=== PATIENT | female | born 1945 | race Caucasian/White ===

== ENCOUNTER 2019-09-22 11:46 | Inpatient (IN) | payer OTHER, BC ==
[2019-09-22] VITALS (12 sets, daily range): BP systolic 92–130; BP diastolic 42–66
[~2019-09-22] VITALS: Ht 165.1 cm; Wt 80.7 kg
[2019-09-22] MEDS ORDERED: DOXYCYCLINE 10100 M1 PO (12:03)
[2019-09-22] MEDS ORDERED: BACTRIM DS TAB1 EACH PO (12:03)
[2019-09-22] MEDS ORDERED: ACYCLOVIR 400400 MG PO (12:03)
[2019-09-22] MEDS ORDERED: WIXELA 250-501 EACH INH (12:04)
[2019-09-22] MEDS ORDERED: PREDNISONE 20 M20 M1 PO (12:04)
[2019-09-22] MEDS ORDERED: PROAIR HFA8.5 GM INH (12:04)
[2019-09-22] MEDS ORDERED: WELLBUTRIN 75 M75 M1 PO (12:04)
[2019-09-22 12:08] LABS: HEMATOCRIT 33.8 % (37.0-47.0); HEMOGLOBIN 10.7 gm/dL (12.0-15.0); MCH 31.3 pg (26.0-34.0); MCHC 31.7 g/dL (28.0-37.0); MCV 98.5 fL (80.0-100.0); PLATELET COUNT 294 thou/uL (150-400); RBC 3.43 mil/uL (4.20-5.00); RDW 13.8 % (10.5-14.5); WBC 15.9 thou/uL (4.0-11.0)
[2019-09-22 12:14] LABS: ANION GAP 8 mmol/L (7-16); BUN 13 mg/dL (7-18); CALCIUM 9.2 mg/dL (8.5-10.1); CHLORIDE 99 mmol/L (98-107); CO2 26 mmol/L (21-32); CREATININE 1.2 mg/dL (0.6-1.0); GLUCOSE 110 mg/dL (74-106); POTASSIUM 4.6 mmol/L (3.5-5.1); SODIUM 133 mmol/L (136-145)
[2019-09-22 12:24] LABS: ALBUMIN 2.3 g/dL (3.4-5.0); SGOT 16 U/L (15-37); SGPT 21 U/L (30-65); TOTAL BILIRUBIN 0.3 mg/dL (<0.1-1.0); TROPONIN-I <0.06 ng/mL (<0.06)
[2019-09-22 12:38] LABS: BE(vivo) 0.4 mmol/L (-2 to +3); HCO3 23.8 mmol/L (22.0-26.0); PCO2 34.2 mmHg (35.0-45.0); PO2 68.2 mmHg (80.0-100.0); pH 7.461 (7.360-7.450); sO2 94.7 % (92.0-98.0)
[2019-09-22 12:41] LABS: ABSOLUTE NEUTROPHILS 13.7 thou/uL (1.4-8.2); ANISOCYTOSIS SLIGHT; POLYCHROMASIA SLIGHT
[2019-09-22 14:08] LABS: APTT 27.9 Seconds (24.5-32.8); INR 1.1
--- NOTE | 2019-09-22 19:39 | NUR ---
at 1820, admitted to icu #244 with diagnosis pneumonia and darío pulmonary embolis. alert/oriented x 4, cooperative, calm, pleasant, sr-100, sao2 down to 89%, then increased 02 to 7 L/high flow nc with sa02 increasing to 92%. when speaking in short sentence, pt starts coughing which resolves quickly. admission history completed, report given to SHERRY Mauro.
[2019-09-23] VITALS (21 sets, daily range): BP systolic 92–117; BP diastolic 38–63
[2019-09-23 03:25] LABS: HEMATOCRIT 28.8 % (37.0-47.0); HEMOGLOBIN 9.3 gm/dL (12.0-15.0); MCH 31.6 pg (26.0-34.0); MCHC 32.1 g/dL (28.0-37.0); MCV 98.3 fL (80.0-100.0); RBC 2.93 mil/uL (4.20-5.00); RDW 13.7 % (10.5-14.5); WBC 12.6 thou/uL (4.0-11.0)
[2019-09-23 03:33] LABS: CALCIUM 8.4 mg/dL (8.5-10.1); POTASSIUM 4.8 mmol/L (3.5-5.1)
--- NOTE | 2019-09-23 07:41 | H ---
[facility] [place] [address] HISTORY AND PHYSICAL Name: MANUELAJAI Aman Room #: 244-P [facility] IN [facility]#: [id number] Admission: 09/22/19 Attend Phys: Sean Aguilar MD Discharge: Date of : 49 Report #: [id number] THIS REPORT FOR: //name// CC: Sean Rahman DATE OF SERVICE: 09/22/2019 CHIEF COMPLAINT: Shortness of breath. HISTORY OF PRESENT ILLNESS: The patient is a 74-year-old female who was admitted through the Emergency Room with complaints of shortness of breath. Over the last several weeks, she has had a lot of cough and congestion, progressive shortness of breath along with progressive leg edema. She has been seen through the office with Dr. Rahman and several courses of antibiotics and COPD treatment has been ordered; however, she is not improved. Today in the office, she was severely hypoxic and was routed to the Emergency Room. PAST MEDICAL HISTORY: Chronic obstructive pulmonary disease. PAST SURGICAL HISTORY: None. FAMILY HISTORY: Noncontributory. SOCIAL HISTORY: She has remote [id number]-[id number] history of smoking. No chronic alcohol use. ALLERGIES: None. MEDICATIONS: She recently completed, Bactrim and doxycycline, acyclovir and prednisone taper, also takes Wellbutrin, ProAir and Wixela inhaler twice daily. REVIEW OF SYSTEMS: She just complains of shortness of breath and weakness. Otherwise, no headache, chest pain, abdominal pain, nausea, vomiting, diarrhea, constipation, dysuria, syncope. She has some lower leg edema. OBJECTIVE: VITAL SIGNS: Temperature 36.6, pulse 107, respirations 19, blood pressure 94/46, O2 sat 93% on 6 liters nasal cannula. GENERAL: She is awake and alert, sitting up in bed, in no distress. HEAD AND NECK: Unremarkable. LUNGS: Clear with no wheezing. HEART: Tachycardic, regular rhythm. ABDOMEN: Soft, normoactive bowel sounds. No rebound or guarding. EXTREMITIES: 1+ lower extremity edema. NEUROLOGIC: Cranial nerves intact. Speech is fluent. Motor strength 02/[address] [address] HISTORY AND PHYSICAL Name: JAI ROY Room #: 244-P [facility] IN [facility]#: [id number] Admission: 09/22/19 Attend Phys: Sean Aguilar MD Discharge: Date of : 49 Report #: [id number]. LABORATORY DATA: White count was 15, pH 7.46, pCO2 of 34, pO2 of 68 on 9 liters nasal cannula. Chemistry was unremarkable. Albumin 2.3. CTA of the chest shows bilateral pulmonary emboli and there is a right upper lobe infiltrate. ASSESSMENT: 1. Bilateral pulmonary embolus. 2. Right upper lobe pneumonia. 3. Chronic obstructive pulmonary disease exacerbation due to the above. 4. Acute hypoxic respiratory failure due to the above. PLAN: She will be treated with antibiotics, broad-spectrum that she has been on oral treatment as an outpatient and failed Lovenox. Lovenox PE treatment dose has been ordered along with venous Dopplers. I will ask for an echocardiogram as well. Dr. Roblero has been consulted and I have spoken to him at the bedside and ER with additional pulmonary workup planned for the right upper lobe infiltrate. <ELECTRONICALLY SIGNED> By: Sean Aguilar MD 09/23/19 0741 [id number] [id number] Sean Aguilar MD /nt
--- NOTE | 2019-09-23 11:04 | NUR ---
BEDSIDE ECHO DONE. PATIENT HAS STRONG PRODUCTIVE COUGH, INSPIRATORY AND EXPIRATORY WHEEZING NOTED. PATIENT SPEAKING IN SHORT SENTENCES
--- NOTE | 2019-09-23 19:51 | NUR ---
PATIENT NOTED TO BE LESS DYSPNIC WITH ACTIVITY DAY PRORESSED. SPEAKING IN FULL SENTENCES. MONITOR STABLE AND HR UP TO THE LOW 100'S WITH ACTIVITY. DENIES PAIN. PATIENT AND FAMILY UPDATED TO THE PLAN OF CARE AND REASSURANCE GIVEN.
[2019-09-24] VITALS (21 sets, daily range): BP systolic 90–140; BP diastolic 42–80
[2019-09-24 03:33] LABS: HEMATOCRIT 27.2 % (37.0-47.0); HEMOGLOBIN 8.6 gm/dL (12.0-15.0); MCH 31.5 pg (26.0-34.0); MCHC 31.8 g/dL (28.0-37.0); MCV 99.2 fL (80.0-100.0); RBC 2.74 mil/uL (4.20-5.00); RDW 14.4 % (10.5-14.5); WBC 15.8 thou/uL (4.0-11.0)
[2019-09-24 03:37] LABS: CALCIUM 8.2 mg/dL (8.5-10.1); POTASSIUM 4.8 mmol/L (3.5-5.1)
--- NOTE | 2019-09-24 07:27 | NUR ---
Pt states she feels she is breathing better. Takes less time to recover after getting up to BSC, sat will decrease to 88% but back above 90% after 5-7 minutes. Monitor remains sinus rhythm at rest, sinus tach up to 110 with activity. Pt moved to room 237 at 0600 with belongings.
--- NOTE | 2019-09-24 11:20 | EKG ---
[address] [address] ELECTROCARDIOGRAM REPORT Name: JAI ROY Room #: 237-[facility] IN .R.#: [id number] Admission: 09/22/19 Attend Phys: Sean Aguilar MD Discharge: Date of : 49 Report #: [id number] THIS REPORT FOR: //name// [facility] ED Test Date: 2019-09-22 Test Time: 11:55:26 Pat Name: JAI GOODRICHGOMERY Department: Room: [facility] Gender: F Data Communications Engineer: ts : 1945 Requested By: Greg Oscar Order Number: [id number] MD: Ever Vera Measurements Intervals [place] Rate: 113 P: 60 SD: 140 QRS: -6 QRSD: 104 T: 23 QT: 329 QTc: 451 Interpretive Statements Sinus tachycardia Probable left atrial enlargement Low voltage, extremity and precordial leads No previous ECG available for comparison Electronically Signed On 09-24-2019 11:20:02 ELEMENTARY READING SPECIALIST by Ever Vera [email or web address] <ELECTRONICALLY SIGNED> By: Ever Vera MD 09/24/19 1120 1155 1155 Ever Vera MD /PEGGY
--- NOTE | 2019-09-24 13:16 | NUR ---
PATIENT UP TO THE BEDSIDE COMMODE. O2 SAT DIPPED TO THE 80'S BUT RECOVERED AFTER ALEXIA 5 MIN. VISITING WITH FAMILY MEMBER SPEAKING IN COMPLETE SENTENCES.
--- NOTE | 2019-09-24 18:24 | NUR ---
PATIENT UP TO CHAIR WITH ASSISTANCE, COUGHING AND O2 SAT IN THE UPPER 80'S. O2 INCREASED FOR ACTIVITY. PRODUCTIVE COUGH OF BROWNISH MUCOUS. ASSISTED WITH BATH, WITH REST PERIODS PROVIDED AND ASSISTANCE GIVEN. PATIENT AND FAMILY UPDATED TO THE POC AND REASSURANCE GIVEN.
--- NOTE | 2019-09-24 22:38 | NUR ---
PT C/O CHEST PAIN AT 2154. PT WAS UNSURE IF IT WAS RELATED TO HER COUGHING. 12 LEAD EKG DONE PER DR. WARD. RESULTS CALLED BACK TO DR WARD AT 2237. EKG SHOWS SR. ORDERS GIVEN FOR INDIGESTION, PAIN, AND COUGH SUPPRESSANT .
[2019-09-25] VITALS (13 sets, daily range): BP systolic 99–122; BP diastolic 34–56
--- NOTE | 2019-09-25 01:40 | 2DMMODE ---
[facility] [address] [place] [address] 2 D/M-MODE ECHOCARDIOGRAM Name: JAI ROY Room #: 237-P [facility] IN .#: [id number] Admission: 09/22/19 Attend Phys: Danielle Andrew Discharge: Date of : 49 Report #: [id number] THIS REPORT FOR: //name// APPROVED REPORT Study performed: 09/23/2019 09:38:16 EXAM: Comprehensive 2D, Doppler, and color-flow Echocardiogram Patient Location: Bedside Room #: 244 Status: on-call BSA: 1.87 HR: 96 bpm BP: 110/53 mmHg Rhythm: NSR Other Information Study Quality: Adequate Technically limited study due to inability to position patient, lung disease. Risk Factors: Cardiac Risk Factors: Smoking Indications COPD Pulmonary Embolism Respiratory Failure 2D Dimensions IVSd: 12.77 (7-11mm) LVOT Diam: 20.00 (18-24mm) LVDd: 35.36 mm PWd: 13.09 (7-11mm) LVDs: 24.53 (25-40mm) Aortic Root: 29.92 mm LV Single Plane 4CH: 64.87 % LV Single Plane 2CH: 59.62 % Biplane EF: 59.8 % Volumes Left Atrial Volume (Systole) Single Plane 4CH: 43.87 mL Single Plane 2CH: 31.41 mL LA ESV Index: 22.00 mL/m2 Aortic Valve [facility] [address] [place] [address] 2 D/M-MODE ECHOCARDIOGRAM Name: JAI ROY Room #: 237-P [facility] IN ..#: [id number] Admission: 09/22/19 Attend Phys: Danielle Andrew Discharge: Date of : 49 Report #: [id number] AoV Peak Florian.: 2.18 m/s AO Peak Gr.: 19.09 mmHg LVOT Max P.03 mmHg AO Mean Gr.: 11.09 mmHg LVOT Mean P.96 mmHg AO V2 Mean: 1.50 m/s LVOT Max V: 1.00 m/s AO V2 VTI: 36.33 cm LVOT Mean V: 0.66 m/s SUPA (VTI): 2.01 cm2 LVOT V1 VTI: 23.87 cm SUPA Vmax: 1.40 cm2 SV (LVOT): 72.98 mL Mitral Valve E/A Ratio: 0.8 MV Decel. Time: 221.69 ms MV E Max Florian.: 0.90 m/s MV A Florian.: 1.16 m/s MV PHT: 64.29 ms IVRT: 79.58 ms TDI E/Lateral E': 8.18 E/Medial E': 6.92 Medial E' Florian.: 0.13 m/s Lateral E' Florian.: 0.11 m/s Pulmonary Valve PV Peak Florian.: 1.12 m/s PV Peak Gr.: 5.01 mmHg Pulmonary Vein P Vein S: 0.47 m/s P Vein A: 0.34 m/s P Vein D: 0.32 m/s P Vein A Dur.: 114.2 msec P Vein S/D Ratio: 1.47 Tricuspid Valve TR Peak Florian.: 3.47 m/s RAP Estimate: 15.00 mmHg TR Peak Gr.: 48.24 mmHg PA Pressure: 63.00 mmHg Left Ventricle The left ventricle is normal size. There is normal LV segmental wall motion. Mild to moderate concentric left ventricular hypertrophy. Left ventricular systolic function is normal. The left ventricular ejection fraction is within the normal range. LVEF is 60-65%. Mild diastolic dysfunction is present (impaired relaxation pattern). Right Ventricle Right ventricle is dilated. Right ventricle is hypokinetic. [facility] [address] [place] [address] 2 D/M-MODE ECHOCARDIOGRAM Name: JAI ROY Room #: [facility] IN [facility]#: [id number] Admission: 09/22/19 Attend Phys: Danielle Andrew Discharge: Date of : 49 Report #: [id number] Atria The left atrium size is normal. Right atrium is dilated. Aortic Valve The Aortic valve is sclerotic. Trace aortic regurgitation. There is no aortic valvular stenosis. Mitral Valve There is mitral annular calcification. There is no mitral valve regurgitation noted. No evidence of mitral valve stenosis. Tricuspid Valve The tricuspid valve is normal in structure. Trace to mild tricuspid regurgitation. Pulmonary artery pressure is 63 mmHg. Moderate pulmonary hypertension. Pulmonic Valve The pulmonary valve is normal in structure. There is no pulmonic valvular regurgitation. Great Vessels The aortic root is normal in size. IVC is dilated and collapses <50% with inspiration. Pericardium There is no pericardial effusion. <Conclusion> The left ventricle is normal size. LVEF is 60-65%. Right ventricle is dilated. Right ventricle is hypokinetic. Right atrium is dilated. The Aortic valve is sclerotic. Trace aortic regurgitation. There is mitral annular calcification. There is no mitral valve regurgitation noted. The tricuspid valve is normal in structure. Trace to mild tricuspid regurgitation. Pulmonary artery pressure is 63 mmHg[place] [address] 2 D/M-MODE ECHOCARDIOGRAM Name: JAI ROY Room #: 237-P [facility] IN [facility]#: [id number] Admission: 09/22/19 Attend Phys: Danielle Andrew Discharge: Date of : 49 Report #: [id number] The pulmonary valve is normal in structure. There is no pericardial effusion. <ELECTRONICALLY SIGNED> By: King Barnes MD 09/25/19139 9 9 King Barnes MD /INF
[2019-09-25 05:38] LABS: HEMATOCRIT 30.9 % (37.0-47.0); HEMOGLOBIN 9.7 gm/dL (12.0-15.0); MCH 31.5 pg (26.0-34.0); MCHC 31.5 g/dL (28.0-37.0); MCV 99.8 fL (80.0-100.0); RBC 3.09 mil/uL (4.20-5.00); RDW 14.2 % (10.5-14.5); WBC 15.5 thou/uL (4.0-11.0)
[2019-09-25 05:56] LABS: CALCIUM 8.8 mg/dL (8.5-10.1); CREATININE 0.9 mg/dL (0.6-1.0)
--- NOTE | 2019-09-25 07:47 | EKG ---
[address] [address] ELECTROCARDIOGRAM REPORT Name: JAI ROY Room #: 237- [facility] IN .R.#: [id number] Admission: 09/22/19 Attend Phys: Sean Aguilar MD Discharge: Date of : 49 Report #: [id number] THIS REPORT FOR: //name// [facility] Test Date: 2019-09-24 Test Time: 22:04:16 Pat Name: JAI ROY Department: Room: [facility] Gender: F Area Field Worker: JG : 1945 Requested By: Porfirio Roblero Order Number: [id number] MD: Antonio Jacques Measurements Intervals [place] Rate: 91 P: 57 ND: 144 QRS: -6 QRSD: 85 T: 29 QT: 333 QTc: 410 Interpretive Statements Sinus rhythm Normal tracing Compared to ECG 09/22/2019 11:55:26 Sinus tachycardia no longer present Electronically Signed On 09-25-2019 7:47:31 SITE ENGINEER by Antonio Jacques [email or web address] <ELECTRONICALLY SIGNED> By: Antonio Jacques MD, [facility] 09/25/19 0747 03 03 Antonio Jacques MD, [facility] /EPI
--- NOTE | 2019-09-25 15:00 | NUR ---
CM ASSESSMENT: CASE OPENED FOR DC PLANNING. CLINICAL INFO REVIEWED. PT ADMITS FROM HOME WITH PNA, ACUTE RESP FAILURE. PT ALERT AND ORIENTED X4. LIVES WITH SPOUSE IN HOUSE. STEPS TO ENTER-PT STATES SPOUSE JUST PUT IN STAIR LIFT CHAIR. PT INDEPENDENT WITH ADLS, HAS NEEDED TO USE HER WALKER LATELY. REPORTS RECENT HOME O2 THROUGH [employer] AND NEBULIZER FROM [employer] ALSO A FEW YEARS AGO. CURRENTLY ON 6 L NC AND DESATS WITH EXERTION. NO PREVIOUS HH OR REHAB STAY. THERAPY EVALS ORDERED AND PT IS OPEN TO RECOMMENDED THERAPY OPTIONS.
--- NOTE | 2019-09-25 18:04 | NUR ---
pt is A&OX3, PT is continuing IV abx and o2 5L/min/nc, pt has SOB with activities, pt has coughing , pt's vs , bs and o2sat are stable, pt gets up to chair for dinner with assist, pt denies pain at this time,
[2019-09-26] VITALS (7 sets, daily range): BP systolic 92–138; BP diastolic 47–58
--- NOTE | 2019-09-26 17:00 | NUR ---
No event in this shift. Pt remains stable. PT/OT had been working with her today. She required O2 to 6 liters while working with PT. Up in chair for meal once today. Rehab nurse visited. Continue to monitor any changes,
--- NOTE | 2019-09-26 17:49 | NUR ---
report gave to SHERRY Abreu.
--- NOTE | 2019-09-26 18:10 | NUR ---
Pt left ICU to room 356 by wheelchair with stable conditions. She is accompanied by me and SKIDDER LOADER. All belonging are sent to room 356 with her. Her has been notified regarding of above.
--- NOTE | 2019-09-26 18:28 | NUR ---
ASSUMED CARE OF PATIENT WHEN ADMITTED TO FLOOR AT APPROXIMATELY 1820. VSS. ALERT AND ORIENTED X 4. PATIENT ON 4L NASAL CANNULA WITH SOME LABORED BREATHING WITH AMBULATION. PATIENT EDUCATED FRAMING MILL OPERATOR LIGHT AND FALL PRECAUTIONS. CONTINUING TO MONITOR.
--- NOTE | 2019-09-27 03:05 | NUR ---
ASSUMED PT CARE AROUND 1900. A&OX4. DENIES ANY PAIN. PT SAT UP IN CHAIR AT BEGINNING OF SHIFT AND VISITED WITH FAMILY. TOLERATED WELL. PT DOES GET SOA W/ EXERTION. O2 SATS STABLE ON 4L NC. PT HAS BEEN SLEEPING MOST OF THE NIGHT. RESP EVEN AND UNLABORED. VSS. FALL PRECAUTIONS IN PLACE. PROGRESSING TOWARD POC GOALS. WILL CONTINUE TO MONITOR FURTHER.
[2019-09-27 04:24] VITALS: BP 122/58
[2019-09-27 07:18] VITALS: BP 135/56
[2019-09-27 11:19] VITALS: BP 106/80
[2019-09-27] MEDS ORDERED: IPRAT-ALBUT 0.5-3 ML INH (12:59)
[2019-09-27] MEDS ORDERED: ZOSYN 3/0.373.375 G3 IVPB (12:59)
[2019-09-27] MEDS ORDERED: ELIQUIS5 MG PO (13:00)
[2019-09-27] MEDS ORDERED: PANTOPRAZOLE SO40 M1 PO (13:01)
--- NOTE | 2019-09-27 14:24 | NUR ---
DISCHARGE NOTE: ABEL reviewed chart and spoke with nursing and attending physician. Pt was transferred to 3W from ICU and is medically stable to discharge to 5N today. ABEL met with pt at bedside to discuss discharge. Pt was not aware of going to 5N. SW explained that discharge orders have been written and 5N has a room today. Pt agreeable and states she will notify her family. Rehab CM to follow and assist as needed with discharge planning.
--- NOTE | 2019-09-27 16:06 | PATH ---
[facility] [address] [place] [address] PATHOLOGY RPT PROCEDURE Name: JAI ROY Room #: 356-P ADM IN [facility]#: [id number] Admission: 09/22/19 Date of : 49 Discharge: Report #: [id number] Path Case #: [id number] Note [facility] Accession Number: [id number] TESTS RESULT FLAG UNITS REF RANGE LAB Clinician Provided Cytology Information No. of containers..01 Other (Miscellaneous) Source: SPUTUM DIAGNOSIS: 02 SPUTUM NEGATIVE FOR MALIGNANT EPITHELIAL CELLS. CELLULAR DEGENERATION IS PRESENT. RARE PULMONARY MACROPHAGES IDENTIFIED. Pathologist ICD10: 02 J96.00 Signed out by: Amy Ha MD, Pathologist NPI- [id number] Performed by: Jannie Merino, Ct Technician ([facility]) Gross description: 01 5ML, YELLOW, THICK /LCS 11/21/1840 0000 Local FLAG LEGEND: L-Low Normal,H-High Normal,LL-Alert Low,HH-Alert High <-Panic Low,>-Panic High,A-Abnormal,AA-Critical Abnormal Performed at: [address] [place] [address] Moe Morris MD, [address] [address] Amy Ha MD, Specimen Comment: A courtesy copy of this report has been sent to [phone], [phone] Specimen Comment: [phone] Specimen Comment: Report sent to TEMITOPE Mckinnon / DR ANDRADE Performed at: [address], [place], [place] [id number] MD Moe Morris MD Phone: [phone]
[2019-09-27 16:43] VITALS: BP 118/53
--- NOTE | 2019-09-27 17:27 | NUR ---
Assumed care approx. 0700 this AM. No acute changes. Discharge orders obtained for pt to go to rehab. Pt has been ambulating to the [facility]. Pt still recieving IV abx and breathing treatments. Report called to Mariaelena barrera with SHERRY Dave as recieving nurse. Patient being taken up by wheelchair with oxygen and IV Zosyn at approx. 1730.
[2019-09-28 08:46] LABS: T-SPOT.TB Negative
--- NOTE | 2019-09-28 10:23 | D ---
[facility] [address] DISCHARGE SUMMARY Name: ROYJAI Aman Room #: 356-P [facility] IN ..#: [id number] Admission: 09/22/19 Attend Phys: Sean Aguilar MD Discharge: 09/27/19 Date of : 49 Report #: [id number] THIS REPORT FOR: //name// CC: Sean Matamoros Josiah FINAL DIAGNOSES: 1. Bilateral pulmonary emboli. 2. Right upper lobe cavitary lesion. 3. Chronic obstructive pulmonary disease. 4. Acute hypoxic respiratory failure. HOSPITAL COURSE: The patient was admitted with shortness of breath and was diagnosed with bilateral PE. CT also suggested a right upper lobe cavitary lesion. Dr. Crandall was consulted. She was treated with broad-spectrum antibiotics as she had been taking outpatient antibiotics without improvement. She was requiring high flow oxygen, was admitted to ICU with initiation of anticoagulation of Lovenox. DVT studies of the legs were negative. Dr. Crandall talked to the patient and her about investigating the cavitary lesion once she was more medically stable. She progressed out of ICU to CCU. Eliquis was initiated and placed on Lovenox. She was participating with therapy. Oxygen requirement was weaned down to about 4-5 liters. PHYSICAL EXAMINATION ON THE DAY OF DISCHARGE: LUNGS: Clear, but distant. HEART: Regular. ABDOMEN: Soft, normoactive bowel sounds. EXTREMITIES: No edema. DISPOSITION: She is transferred to inpatient rehabilitation. I will follow her stay there with Dr. Kumar. Diet and activity as tolerated with PT and OT. I prepared all her transfer medications and orders and she will continue IV antibiotics and steroids for now. <ELECTRONICALLY SIGNED> By: Sean Aguilar MD 09/28/19 1023 1329 1352 Sean Aguilar MD /nt
== END 2019-09-27 17:30 | DRG 175 ==
LOC: ER 11:46 → EROBS 13:30 → ICU 13:30 → 3W 09-26 18:14
PROVIDERS: Internal Medicine Pulmonary Disease; Physician Assistant; ADMIT Internal Medicine Geriatric Medicine
DX: I26.99 Other pulmonary embolism without acute cor pulmonale (principal); J96.21 Acute and chronic respiratory failure with hypoxia; J18.9 Pneumonia, unspecified organism; I82.432 Acute embolism and thrombosis of left popliteal vein; J44.1 Chronic obstructive pulmonary disease with (acute) exacerbation; I82.412 Acute embolism and thrombosis of left femoral vein; J44.0 Chronic obstructive pulmonary disease with (acute) lower respiratory infection; R65.10 Systemic inflammatory response syndrome (SIRS) of non-infectious origin without acute organ dysfunction; Z83.3 Family history of diabetes mellitus; Z82.49 Family history of ischemic heart disease and other diseases of the circulatory system; Z79.899 Other long term (current) drug therapy
CPT/HCPCS: 10203; 10879

== ENCOUNTER 2019-09-27 08:31 | Inpatient (IN) | payer OTHER, BC ==
[~2019-09-27] VITALS: Ht 165.1 cm; Wt 81.2 kg
[~2019-09-27 08:31] MED LIST: ACYCLOVIR 400400 MG PO; BACTRIM DS TAB1 EACH PO; DOXYCYCLINE 10100 M1 PO; PREDNISONE 20 M20 M1 PO; PROAIR HFA8.5 GM INH; WELLBUTRIN 75 M75 M1 PO; WIXELA 250-501 EACH INH
[2019-09-27] MEDS ORDERED: ZOSYN 3/0.373.375 G3 IVPB (12:59)
[2019-09-27] MEDS ORDERED: IPRAT-ALBUT 0.5-3 ML INH (12:59)
[2019-09-27] MEDS ORDERED: ELIQUIS5 MG PO (13:00)
[2019-09-27] MEDS ORDERED: PANTOPRAZOLE SO40 M1 PO (13:01)
[2019-09-27 17:45] VITALS: BP 125/73
--- NOTE | 2019-09-27 18:20 | NUR ---
7490 PATIENT ADMITTED TO ROOM 513. PATIENT IS ALERT AND ORIENTED X4. PATIENT DYE'S, COIL TESTER ARE EQUAL. LUNGS ARE CLEAR AND DEMINISHED. PATIENT IS ON IV ABT WITHOUT ADVERSE AFFECTS. IV SITE IN HER RIGHT AC IS WITHOUT REDNESS OR SWELLING. PATIENT IS ON 02 AT 4L PER N/C. CONTINUES TO HAVE PRODUCTIVE COUGH. PATIENT IS COUGHING UP YELLOW COLORED SPUTUM. ABD IS SOFT WITH BSX4. PATIENT HAD BM TODAY. UP TO THE BSC TO VOID JARVIS COLORED URINE. FAMILY IS HERE TO VISIT. , DAUGHTER AND GRANDSON. PATIENT HAS +1 L.E. EDEMA. PLAN PT/OT/[place] IN THE A.M. WILL CONTINUE TO MONITER
[2019-09-27 19:24] VITALS: BP 119/60; BP 119/62
--- NOTE | 2019-09-28 01:53 | NUR ---
UP TO BATHROOM FOR VOID WITH GAIT BELT, WALKER, O2, AND STANDBY ASSIST. RAC PATENT FOR IV ANTIBIOTICS. PLEASANT, ALERT AND ORIENTED TIMES 4. COUGH SYRUP AT HS OBTAINED PER PATIENT REQUEST
[2019-09-28 06:13] LABS: HEMATOCRIT 30.5 % (37.0-47.0); HEMOGLOBIN 9.8 gm/dL (12.0-15.0); MCH 31.8 pg (26.0-34.0); MCV 99.4 fL (80.0-100.0); RBC 3.06 mil/uL (4.20-5.00); RDW 14.8 % (10.5-14.5); WBC 13.5 thou/uL (4.0-11.0)
[2019-09-28 06:24] LABS: CALCIUM 8.6 mg/dL (8.5-10.1); CREATININE 0.8 mg/dL (0.6-1.0); POTASSIUM 3.7 mmol/L (3.5-5.1)
[2019-09-28 08:30] VITALS: BP 124/65
--- NOTE | 2019-09-28 11:40 | NUR ---
ASSUMED CARE AT 0700. PATIENT IS ALERT AND ORIENTED X4. PATIENT DYE'S, SOFTWARE DEVELOPMENT ENGINEER ARE EQUAL. LUNGS ARE COARSE AND DEMINISHED, WITH A PRODUCTIVE COUGH. PATIENT IS COUGHING UP YELLOW SPUTUM. PATIENT CONTINUES ON IV ABT WITHOUT ADVERSE AFFECTS. PATIENT IS ON 02 SAT 4L PER N/C. 02 HAD TO BE INCREASED TO 5-6 L TO PARTICIPATE IN P.T. PATIENT CONTINUES ON RESPIRATORY TREATMENTS. ABD IS SOFT WITH BSX4. UP TO THE BATHROOM TO VOID JARVIS COLORED URINE. FALL AND SAFETY PROTOCOLS IN PLACE. C/O PAIN ON COUGHING. MEDICATED WITH ROBITUSSIN WITH CODIENE. THERAPIES CONTINUE THEIR EVALS. WILL CONTINUE TO MONITER.
--- NOTE | 2019-09-28 12:20 | NUR ---
pt up in recliner chair, a & o, able to make her needs know. pt getting ready for lunch. intro to cm, dcp, and team meeting. letting pt eat lunch with out interruptions. chart review. pt lives at home with spouse. has stairs at home. just recently put in stair lift. has walker, home oxygen and breathing tx [facility] independent. will cont following as needed for dc needs.
[2019-09-28 20:00] VITALS: BP 126/61
--- NOTE | 2019-09-28 23:00 | NUR ---
PT ASSESSMENT DONE AND VSS. MEDICATION GIVEN AND WELL TOLERATED. FALL PRECAUTIONS IN PLACE. SLEEPING WELL. HOURLY ROUNDING. CALL LIGHT IN REACH. WILL CONTINUE TO MONITOR. FAMILY AT BS FOR PART OF THE EVENING.
[2019-09-29 09:38] VITALS: BP 112/46
--- NOTE | 2019-09-29 18:06 | NUR ---
ASSUMED CARES AT 0700. PT AWAKE, ALERT AND ORIENTED*4 BUT FORGETFUL. DENIES PAIN. LS COARSE AND PT C/O SOA WITH EXERCION, ON 4L O2 AT REST AND 6L WITH ACTIVITY. ONETIME DOSE OF IV LASIX ORDERED AND ADMINISTERED, PT HAS A PRODUCTIVE COUGH, SECRETIONS ARE THICK AND YELLOW. PT VOIDING LARGE AMOUNTS OF CLEAR, LIGHT YELLOW URINE AFTER LASIX ADMINISTRATION. BLE EDEMA 2+, EXTREMITIES ELEVATED. PT UP WITH 1 MIN- SBA, GB AND WALKER AND TOLERATED WELL. Q1H VISUAL CHECKS. CALL LIGHT WITHIN REACH. FALL PRECAUTIONS IN PLACE.
[2019-09-29 20:00] VITALS: BP 123/62
--- NOTE | 2019-09-29 23:43 | NUR ---
PT ASSESSMENT COMPLETED AND VSS. MEDS GIVEN ORDERED AND WELL TOLERATED. FALL PRECAUTIONS IN PLACE. SUPPORTIVE FAMILY AT BEDSIDE. SAT WNL ON 4L NC. RT TREATMENTS CONTINUE. PT VOIDING LARGE AMOUNT AFTER RECEIVING DIARETIC TODAY. SLEEPING WELL. DENIES NEEDS. COUGH MEDICATION HELPFUL. WILL CONTINUE TO MONITOR FREQUENTLY.
[2019-09-30 08:10] VITALS: BP 115/54
--- NOTE | 2019-09-30 09:34 | NUR ---
ASSUMED CARE AT 0700. PATIENT IS ALERT AND ORIENTED X4. PATIENT DYE'S, SCREEDMAN/LABORER ARE EQUAL. LUNGS ARE COARSE AND DEMINISHED. PATIENT CONTINUES ON IV ABT WITHOUT ADVERSE AFFECTS. PATIENT CONTINUES ON 02 AT 4L PER N/C. PATIENT CONTINUES ON RESPIRATORY TX. PATIENT CAN BE INCREASED TO 5-6 L WITH ACTIVIITY. UP TO THE BATHROOM TO VOID WITH ASSIST OF 1 STAFF, GAIT BELT AND WALKER. ABD IS SOFT WITH BSX4. VOIDING JARVIS COLORED URINE. HERE TO VISIT. UP IN RECLINER FOR MEALS. AT BEDSIDE. FALL AND SAFETY PROTOCOLS IN PLACE. DENIES ANY PAIN AT THIS TIME. CONTINUES TO PROGRESS SLOWLY TOWARDS D/C GOALS. PATIENT HAS S.L. IN HER RIGHT AC. SITE WITHOUT REDNESS OR SWELLING. WILL CONTINUE TO MONITER.
[2019-09-30 19:35] VITALS: BP 109/52
--- NOTE | 2019-09-30 21:41 | NUR ---
PT ASSESSMENT DONE AND VSS. MEDICATION GIVEN AND WELL TOLERATED. FALL PRECAUTIONS IN PLACE. CALL LIGHT IN REACH. HOURLY ROUNDING. WILL CONTINUE TO MONITOR.
[2019-10-01 10:22] VITALS: BP 138/67
[2019-10-01 10:36] VITALS: BP 106/52
--- NOTE | 2019-10-01 16:31 | NUR ---
Alert and oriented x 4, she is calm and cooperative, no complaints of pain, she ambulated to the bathroom with her roller walker, O2 on at 4 L/NC in place, she has had visitors today, eats well, she did have questions when her came about Lasix, she wanted to know when she took it, the DIRECTOR OF PEDIATRIC REHABILITATION said she was going to get it, looked i the notes and saw no order for lasix, she also stated she was told to wear compression hose, Dr. Sanches here and left note mentioning these, but no lasix, she stqted she was going to question the DIRECTOR OF PEDIATRIC REHABILITATION tomorrow, compresion hose are ordered through [facility], awaiting on delivery. monitor respiratory status, fall prevention.
[2019-10-01 20:05] VITALS: BP 118/56
--- NOTE | 2019-10-02 02:32 | NUR ---
CALLS FOR XBA UP TO BATHROOM WITH 4WW AND O2 4L WITH EXTENSION TUBING. ANTIBIOTIC Q 6 THROUGH RAC PERIPHERAL SITE. COUGHING SPELLS
[2019-10-02 05:44] LABS: HEMATOCRIT 29.9 % (37.0-47.0); HEMOGLOBIN 9.8 gm/dL (12.0-15.0); MCH 32.6 pg (26.0-34.0); MCHC 32.7 g/dL (28.0-37.0); MCV 99.9 fL (80.0-100.0); WBC 10.6 thou/uL (4.0-11.0)
[2019-10-02 05:50] LABS: CALCIUM 8.8 mg/dL (8.5-10.1); CREATININE 0.7 mg/dL (0.6-1.0); POTASSIUM 3.8 mmol/L (3.5-5.1)
[2019-10-02 08:15] VITALS: BP 122/58
--- NOTE | 2019-10-02 10:56 | HC ---
[facility] [place] [address] CONSULTATION Name: JAI ROY Room #: 513-P [facility] IN M.R.#: [id number] Admission: 09/27/19 Attend Phys: Sean Kumar MD Discharge: Date of : 49 Report #: [id number] THIS REPORT FOR: //name// CC: Sean Kumar Gustavojesus alberto Josiah DATE OF SERVICE: 09/30/2019 ATTENDING PHYSICIAN: Sean Kumar MD PLASTER MIXER: Vega Mcnally, PhD CLINICAL PRESENTATION: The patient is a 74-year-old female admitted to the [facility] Unit for a comprehensive inpatient rehabilitation program to improve functional mobility, activities of daily living and self-care and mental status secondary to deficits from pulmonary and respiratory insufficiency. Her assessment on admission to the rehab unit also included bilateral pulmonary emboli, acute exacerbation of COPD, left lower extremity deep venous thrombosis and right upper lobe pneumonia. The patient reported having been short of breath at her home for about one month prior to her hospitalization. She had been diagnosed with pneumonia and had attempts at treatment, which were unsuccessful, leading to this hospitalization. A history of very high tobacco use is described. She discontinued smoking in January,. Neuropsychological consultation was requested to provide assistance in the assessment of cognitive and emotional status and to provide recommendations and services. Prior to this most recent medical event, she was living independently in her home with her . The patient has three children. One daughter and a grandson are currently living with them. Her is retired. 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 She is a college graduate. TECHNIQUES UTILIZED: Clinical interview, review of medical records, staff consultation and behavioral observation, mini mental status exam 2 standard version, clock drawing, digits forward, digits backward and verbal fluency assessment (letter and category). EXAMINATION FINDINGS: The patient was alert and cooperative with the assessment. There is no evidence of aphasia. Her thoughts are logical and goal oriented. There is no evidence of thought disorder. She does not report auditory or visual hallucinations. There is no suicidal ideation. She describes her symptoms to include depression, anxiety, tiredness/fatigue and difficulty with word finding. Deficits in memory are reported that she [facility] [address] [place] [address] CONSULTATION Name: JAI ROY Aman Room #: 513-P [facility] IN [facility].#: [id number] Admission: 09/27/19 Attend Phys: Sean Kumar MD Discharge: Date of : 49 Report #: [id number] attributes to normal aging. However, she does indicate that she experienced episodic confusion and disorientation beginning about one month prior to her hospitalization. She reports having been independent with instrumental activities of daily living and driving. Her performance on the MMSE 2 brief version was in the borderline range with a raw score of 13/16, T score of 34 and percentile rank of 5. She was 3/3 for initial registration, 5/5 for orientation to time and place. She was 0/3 for immediate recall of 3 items after a brief time delay and distraction. Her performance on the MMSE 2 standard version was 23/30, which is a T score of 30 and percentile rank at 2. She was 2/5 for serial sevens, 2/2 for naming, 1/1 for repetition, 3/3 for auditory comprehension. She could read and follow single command and write a sentence. However, the patient had difficulty with accurately copying a simple geometric design. Digits forward was at the 4th percentile with a T score of 32. Digits backward was extremely low with a raw score of 1, T score of 26 and percentile rank of 1. Clock drawing was within normal limits. Letter fluency was in the low average range with a raw score of 25, T score of 42 and percentile rank at 21. Category fluency was in the low average range with a raw score of 36, T score of 40 and percentile rank of 16. Overall, total verbal fluency was low average with a T score of 38 and a percentile rank at 12. The patient is alert and oriented. However, she is having difficulty with sustained attention, concentration and immediate recall. Deficits are also noted in visual spatial construction and mild in verbal fluency. This type of presentation suggests a neurocognitive disorder. 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 Unspecified anxiety disorder with depressed mood. RECOMMENDATIONS: Continued use of antidepressant medicine. She is currently taking bupropion 150 mg. Speech therapy will be helpful to assist with cognitive stimulation and use of compensatory strategies. A followup neuropsychological evaluation is indicated to clarify the extent of cognitive deficits. At this time, diminished cognition is noted and clarification of the etiology would be helpful for longer term planning. Verbal praise and complements about participation in therapies and assistance [address] [address] CONSULTATION Name: JAI ROY Room #: [facility] IN M.R.#: [id number] Admission: 09/27/19 Attend Phys: Sean Kumar MD Discharge: Date of : 49 Report #: [id number] in recognizing an areas of improved functioning will help her self-confidence. Driving is a safety concern and further assessment is recommended. Thank you very much for allowing me to provide the consultation on this patient. <ELECTRONICALLY SIGNED> By: Vega Mcnally, PhD 10/02/19 1056 [id number] Vega Mcnally, PhD /nt
--- NOTE | 2019-10-02 11:15 | NUR ---
Received awake on bed. Due medications given as prescribed, able to swallow meds w/o difficulty. A+Ox4. Vital signs stable. On O2 at 4lpm via nasal cannula. With SL at R AC- pt receiving IV antibiotics. Able to go to the bathroom using gait belt and walker; falls risk- falls bundle in place. Assisted in ADLs. Visited by today. Pt said that Dr Aguilar told her that she will be on diuretics- none on the EMAR or orders- will contact Dr Aguilar.
[2019-10-02 19:15] VITALS: BP 112/58
--- NOTE | 2019-10-03 04:20 | NUR ---
MORE VOIDING THAN TYPICAL PRIOR TO MIDNIGHT, HAD IV PUSH DIURETIC IN THE AFTERNOON, USING GAIT BELT, WALKER, AND EXTENDED OXYGEN TUBING. RIGHT AC IV SITE FOR ZOSYN ANTIBIOTIC Q 6 HOURS. PLEASANT, COUGHING SPELLS MUCH DECREASED COMPARED TO 24 HOURS AGO.
[2019-10-03 06:17] LABS: CALCIUM 8.7 mg/dL (8.5-10.1); CREATININE 0.8 mg/dL (0.6-1.0); POTASSIUM 3.6 mmol/L (3.5-5.1)
[2019-10-03 09:00] VITALS: BP 107/56
--- NOTE | 2019-10-03 13:48 | NUR ---
team meeting, recommendation: dc with [facility] ( pt, ot, nursing), outpt neuro pysch. no dme needed.
--- NOTE | 2019-10-03 17:15 | NUR ---
ASSUMED CARE AT 0700, SHIFT ASSESMENT DONE, MEDS GIVEN, VSS. ON 3LNC, UP WITH STANDBY. DENIES PAIN, NAUSEA, VOMITING. WILL CONTINUE TO ASSESS AND ASSIST WITH ADLs NEEDED.
[2019-10-03 19:50] VITALS: BP 112/58
--- NOTE | 2019-10-04 00:47 | NUR ---
PT ASSESSMENT COMPLETED AND VSS. MEDS GIVEN ORDERED AND WELL TOLERATED. FALL PRECAUTIONS IN PLACE. UP TO THE BATHROOM WITH ASST/GAIT/WALKER. VOIDING LARGE AMOUNT OF YELLOW URINE. SLEEPING WELL. DENIES NEEDS. WILL CONTINUE TO MONITOR FREQUENTLY.
[2019-10-04 05:58] LABS: CALCIUM 9.1 mg/dL (8.5-10.1); CREATININE 0.8 mg/dL (0.6-1.0); POTASSIUM 3.7 mmol/L (3.5-5.1)
[2019-10-04 08:17] VITALS: BP 118/69
--- NOTE | 2019-10-04 11:00 | NUR ---
ASSUMED CARE AT 0700. PATIENT IS ALERT AND ORIENTED X4. PATIENT DYE'S. PRESIDENT ERGONOMIC CONSULTING ARE EQUAl. LUNGS ARE COARSE AND DEMINISHED. PATIENT CONTINUES ON 02 AT 3L PER N/C. PATIENT CONTINUES ON RESPIRATORY TX. S.L. D/C'D TODAY. ABD IS SOFT WITH BSX4. PATIENT IS MOD/I IN ROOM WITH WALKER. UP IN HER RECLINER FOR MEALS. FALL AND SAFETY PROTOCOLS IN PLACE. DENIES ANY PAIN AT THIS TIME. CONTINUES TO PROGRESS TOWARDS D/C GOALS. WILL CONTINUE TO MONITER.
[2019-10-04] MEDS ORDERED: IPRAT-ALBUT 0.5-3 ML INH (12:18)
[2019-10-04] MEDS ORDERED: ELIQUIS5 MG PO (12:19)
[2019-10-04] MEDS ORDERED: PREDNISONE 20 M20 M1 PO (12:19)
[2019-10-04] MEDS ORDERED: GUAIFEN-CODEINE10 ML PO (12:20)
--- NOTE | 2019-10-04 14:25 | NUR ---
marcus visited with pt, and spouse at bedside, " i picked [facility] my sister had them and said they are good. [facility] to [facility] new btx [facility], had this one for years and works but old"/pt. going to order med for btx at home. " like go home early in morning"/zyiad
--- NOTE | 2019-10-04 14:33 | NUR ---
DISCHARGE PLANNING. PATIENT DISCHARGING TO HOME WITH HOME HEALTH RECOMMENDED AT DISCHARGE. PATIENT REFERRAL FAXED TO [facility]. VERIFIED RECEIVED. [facility] TO REVIEW AND NOTIFY CM. FOLLOWIING.
[2019-10-04 14:34] VITALS: BP 118/69
[2019-10-04 19:49] VITALS: BP 106/63
--- NOTE | 2019-10-04 20:30 | NUR ---
PATIENT THINKING AHEAD TO GOING HOME AND HAVING HER PUTTING ONE OF HER HOME O2 TANKS IN THE CAR FOR WHEN HE PICKS HER UP TO GO HOME TOMORROW. UP TO BATHROOM INDEPENDENTLY WITH 4 WHEEL WALKER, PATIENT APPRECIATES BEING A MODIFIED INDEPENDENT IN HER ROOM. HER ROOM IS CLOSE TO, AND EASILY OBSERVED FROM, THE NURSES STATION AND IS SEEN TO BE TRANSFERRING SAFELY FROM BED TO STANDING POSITION.
[2019-10-05 07:55] VITALS: BP 11/49
--- NOTE | 2019-10-05 09:42 | NUR ---
ASSUMED CARE AT 0700. PATIENT IS ALERT AND ORIENTED X4. PATIENT DYE'S, SCREWMAKER AUTOMATIC ARE EQUAL . LUNGS ARE COARSE AND DEMINISHED. ABD IS SOFT WITH BSX4. UP IN CHAIR FOR MEALS. FALL AND SAFETY PROTOCOLS IN PLACE. DENIES ANY PAIN. CONTINUE TO PROGRESS TOWARDS D/C. WILL CONTINUE TO MONITER.
[2019-10-05 09:51] VITALS: BP 118/69
--- NOTE | 2019-10-05 10:31 | NUR ---
PATIENT GIVEN D/C INSTRUCTIONS, AND SCRIPTS. HERE. PATIENT D/C'D TO [facility] VIA W/C WITH ALL OF HER BELONGINGS.
--- NOTE | 2019-10-05 12:07 | NUR ---
faxed dc sum and orders to [facility]. spouse will transport pt home. [phone] faxed to [facility]
--- NOTE | 2019-10-06 11:56 | H ---
[facility] [place] [address] HISTORY AND PHYSICAL Name: MANUELAJAI Aman Room #: 513-P [facility] IN ..#: [id number] Admission: 09/27/19 Attend Phys: Sean Kumar MD Discharge: 10/05/19 Date of : 49 Report #: [id number] THIS REPORT FOR: //name// CC: Sean Matamoros Josiah DATE OF SERVICE: 09/27/2019 HISTORY AND PHYSICAL/POST-ADMISSION PHYSICIAN EVALUATION HISTORY OF PRESENT ILLNESS: The patient is a 74-year-old white female who was originally admitted to [facility] on 09/22/2019. She was admitted with progressive shortness of breath, worsening lower extremity edema. She was diagnosed with acute respiratory failure, bilateral pulmonary emboli, left DVT, acute exacerbation of COPD and right upper lobe pneumonia. She was followed by Pulmonary Medicine Service, started on Lovenox PE dosing and transitioned to Eliquis. She was placed on IV Solu-Medrol and IV Zosyn. She will need an outpatient bronchoscopy and further workup regarding the new clot. She was noted to have significant respiratory insufficiency, generalized weakness and debilitation with medical complexity. She has now been admitted for acute in-hospital inpatient rehabilitation stay. PAST MEDICAL HISTORY: Includes COPD. PAST SURGICAL HISTORY: None. FAMILY HISTORY: Noncontributory. HABITS: Remote [id number] history of smoking. No history of chronic alcohol abuse. ALLERGIES: No known drug allergies. MEDICATIONS: Please see the full medication listing. SOCIAL HISTORY: Lives at home with her , two steps in, 14 inside, but with a new chair lift in place. She has an adult daughter and 8-year-old grandson that also live with her, but are unable to provide any assistance. She had been fully independent with ADLs, sharing IADLs and did not use an assistive device until the last few weeks prior to admission. She then started using a walker. She has not been using any oxygen up until the last few weeks and was then just on 2 liters. REVIEW OF SYSTEMS: No complaints of chest pain, shortness of breath, or abdominal discomfort. She does have weakness. No fever or chills. Denies numbness or tingling. Notes that she does have decreased endurance and [facility] [address] [place] [address] HISTORY AND PHYSICAL Name: JAI ROY Aamn Room #: 51-P [facility] IN [facility].#: [id number] Admission: 09/27/19 Attend Phys: Sean Kumar MD Discharge: 10/05/19 Date of : 49 Report #: [id number] shortness of breath with fairly limited activity. Did not offer any bowel or bladder complaints. PHYSICAL EXAMINATION: GENERAL: The patient is a 34-year-old white female in no obvious distress. VITAL SIGNS: Last recorded temperature 98.4, pulse 90, respirations 22, blood pressure 125/73. She is alert and pleasant. HEENT: Appeared to be benign. NEUROLOGIC: Cranial nerves are grossly intact. Facies are symmetric. CHEST: Some decreased breath sounds throughout. She is currently at 4 liters nasal prong O2. CARDIOVASCULAR: Sounded regular rate and rhythm. ABDOMEN: Bowel sounds positive, nontender. GENITOURINARY AND RECTAL: Deferred. EXTREMITIES: She has functional range of motion of both upper extremities. Strength is grade 4-/5. DTRs are trace to 1. Lower extremities functional range of motion, strength is grade 3+ to 4-/5. Trace distal lower extremity edema. Negative Homans. Tone appeared to be intact. She has been at a min assist level for transfers. ASSESSMENT: A 74-year-old white female admitted with the following problem list: 1. Pulmonary rehabilitation. 2. Respiratory insufficiency. 3. Bilateral pulmonary emboli. 4. Acute exacerbation of chronic obstructive pulmonary disease. 5. Left lower extremity deep venous thrombosis. 6. Right upper lobe pneumonia. PLAN: The patient has been admitted for acute in-hospital inpatient rehabilitation. From a postadmission physician evaluation perspective, there are no relevant changes since the preadmission screening. Please see the review of prior and current medical and functional conditions and comorbidities. Please see the patient's previous and current functional status. As far as risk of complications, the patient has multiple medical comorbidities as noted above. Initial plan of care involves the interdisciplinary acute inpatient rehabilitation program with goal of maximizing her functional independence, so she can hopefully return back to her prior living situation. Measurable functional goals would be for the patient to become modified independent with transfers, mobility, ADLs to improve her overall endurance and improve her pulmonary condition. Ideally wean off or at least decrease her oxygen needs and enable her to return back to her home setting. Prognosis is reasonably good with estimated length of stay probably at least 10 days to [address] [address] HISTORY AND PHYSICAL Name: JAI ROY Room #: 513-P [facility] IN M.R.#: [id number] Admission: 09/27/19 Attend Phys: Sean Kumar MD Discharge: 10/05/19 Date of : 49 Report #: [id number] progress. Potential barriers would include her multiple medical comorbidities and decreased functional status. <ELECTRONICALLY SIGNED> By: Sean Kumar MD 10/06/19 [id number] Sean Kumar MD /nt
--- NOTE | 2019-10-06 11:56 | PLAN ---
[facility] [place] [address] REHAB UNIT PLAN OF CARE Name: JAI ROY Room #: 513-P [facility] IN .R.#: [id number] Admission: 09/27/19 Attend Phys: Sean Kumar MD Discharge: 10/05/19 Date of : 49 Report #: [id number] THIS REPORT FOR: //name// CC: Sean Kumar Saturnino Josiah The overall plan of care is based on the preadmission screen, post-admission physician evaluation and information garnered from therapy assessments. The patient has been involved in her therapies and transfers have been min assist with sit to stand and she has been able to ambulate up to 34 feet, min assist with a front-wheeled walker. She did need to have her O2 increased from 4-6 liters and does need standing rest breaks. PLAN: 1. Estimated length of stay is probably at least 10 days to 2 weeks. 2. Medical prognosis is reasonably good. 3. Anticipated interventions includes the interdisciplinary acute inpatient rehabilitation program. 4. Anticipated functional outcomes would be for the patient to become modified independent with transfers, mobility, ADLs, so she can return back to the home setting. 5. Discharge destination would be back home where she lives with her family. She does have a and a daughter and a grandchild. 6. Expected therapy by discipline includes PT and OT 1-1/2 hours per day each five days a week throughout the duration of the acute in-hospital inpatient rehabilitation stay. <ELECTRONICALLY SIGNED> By: Sean Kumar MD 10/06/19 1156 [id number] eSan Kumar MD /nt
== END 2019-10-05 10:32 | disposition home health service (06) | DRG 175 ==
PROVIDERS: Internal Medicine Geriatric Medicine; ADMIT Physical Medicine & Rehabilitation
DX: I26.09 Other pulmonary embolism with acute cor pulmonale (principal); J96.21 Acute and chronic respiratory failure with hypoxia; J18.9 Pneumonia, unspecified organism; J44.1 Chronic obstructive pulmonary disease with (acute) exacerbation; J44.0 Chronic obstructive pulmonary disease with (acute) lower respiratory infection; I82.432 Acute embolism and thrombosis of left popliteal vein; I82.412 Acute embolism and thrombosis of left femoral vein; F41.8 Other specified anxiety disorders; G31.84 Mild cognitive impairment of uncertain or unknown etiology; G72.9 Myopathy, unspecified; I10 Essential (primary) hypertension; R53.81 Other malaise; Z79.01 Long term (current) use of anticoagulants
CPT/HCPCS: 10112

== ENCOUNTER → 2019-11-01 | Outpatient (CLI) | payer OTHER, BC ==
[~2019-11-01] MED LIST changes: +ELIQUIS5 MG PO; +GUAIFEN-CODEINE10 ML PO; +IPRAT-ALBUT 0.5-3 ML INH; +PANTOPRAZOLE SO40 M1 PO; +ZOSYN 3/0.373.375 G3 IVPB
== END ==
LOC: RAD 10:03
DX: J90 Pleural effusion, not elsewhere classified (principal); J98.4 Other disorders of lung

== ENCOUNTER → 2019-11-08 | Outpatient (CLI) | payer OTHER, BC | LOC: RAD 09:54 | DX: J98.4 Other disorders of lung (principal); K44.9 Diaphragmatic hernia without obstruction or gangrene; I70.0 Atherosclerosis of aorta; I25.10 Atherosclerotic heart disease of native coronary artery without angina pectoris; M25.78 Osteophyte, vertebrae; M41.86 Other forms of scoliosis, lumbar region; J98.11 Atelectasis ==

== ENCOUNTER → 2019-12-11 | Outpatient (CLI) | payer OTHER, BC | LOC: RAD 12:53 | DX: R91.8 Other nonspecific abnormal finding of lung field (principal) ==

== ENCOUNTER → 2020-06-03 | Outpatient (CLI) | payer OTHER, BC | LOC: CAT 10:40 | PROVIDERS: ATTEND Internal Medicine Pulmonary Disease | DX: J47.9 Bronchiectasis, uncomplicated (principal); J98.4 Other disorders of lung; K44.9 Diaphragmatic hernia without obstruction or gangrene; I70.0 Atherosclerosis of aorta; I25.10 Atherosclerotic heart disease of native coronary artery without angina pectoris; M25.78 Osteophyte, vertebrae ==

== ENCOUNTER → 2021-03-31 | Outpatient (CLI) | payer OTHER, BC | LOC: CAT 10:01 | PROVIDERS: ATTEND Pediatrics | DX: J47.9 Bronchiectasis, uncomplicated (principal); K44.9 Diaphragmatic hernia without obstruction or gangrene; J98.4 Other disorders of lung; R06.02 Shortness of breath ==